=== PATIENT | female | born 1955 | race Hispanic/Latino ===

== ENCOUNTER 2017-07-02 09:55 | Day surgery (SDC) | payer MEDICARE ==
[2017-07-02] MEDS ORDERED: Propofol 10 mg/ml Inj (20 ML) ONE (12:01)
[2017-07-02] MEDS ORDERED: Lactated Ringer's 500 ML IV SCH (12:45)
[2017-07-02 13:09] VITALS: TEMP 96.8
[2017-07-02 13:19] VITALS: O2SAT 96
[2017-07-02 14:11] VITALS: BP 160/74; PULSE 74; RESP 15
== END 2017-07-02 14:10 | disposition home or self-care (01) ==
LOC: C.ENDO 09:55
PROVIDERS: ATTEND Internal Medicine Gastroenterology
DX: R13.10 Dysphagia, unspecified (principal); K21.0 Gastro-esophageal reflux disease with esophagitis; K29.70 Gastritis, unspecified, without bleeding; K57.30 Diverticulosis of large intestine without perforation or abscess without bleeding; K64.1 Second degree hemorrhoids; I10 Essential (primary) hypertension; Z80.0 Family history of malignant neoplasm of digestive organs
CPT/HCPCS: 43239; 45378; 88305; J2001; J2704; J3010; J7120